=== PATIENT | female | born 1985 | race African-American/Black ===

== ENCOUNTER 2017-08-09 17:05 | Emergency (ER) | payer OTHER ==
[~2017-08-09] VITALS: Ht 170.1 cm; Wt 85.7 kg
[~2017-08-09 17:05] MED LIST: ALBUTEROL 3 ML 33 ML INH; ALBUTEROL0.09 MG/A2 INH; BACTRIM DS 8001 TA1 PO; BACTROBAN OINT22 GM PO; BIRTH CONTROL1 EAC1; CIPROFLOXACIN500 MG PO; CLARITIN10 MG PO; DUONEB 3 MG/3 ML3 M1 INH; FIORICET 325 MG1 TAB PO; FLONASE ALLERG9.9 ML NAS; HYDROCODONE BIT1 T11 PO; INDOMETHACIN50 MG PO; LEVAQUIN750 M1 PO; MEDROL DOSEPAK4 MG PO; MOTRIN400 MG PO; MOTRIN800 MG PO; PERCOCET 325 MG1 TA2 PO; PHENERGAN W/ DE30 ML PO; PREDNICOT10 MG PO; PREDNICOT20 MG PO; PREDNISONE10 MG PO; PROAIR HFA0.09 MG/AC INH; PROVENTIL0.09 MG/A1 INH; ROBITUSSIN AC 110 ML PO; SEPTRA DS 800 M1 TAB PO; TESSALON PERLE100 M1 PO; TESSALON PERLE200 MG PO; TRAMADOL HCL50 MG PO; ULTRAM50 MG PO; VENTOLIN H0.09 MG/AC INH; VIBRAMYCIN100 MG PO; VICODIN ES 7501 TAB PO; VOLTAREN50 M1 PO; XARELTO15 M1 PO; XARELTO20 M1 PO; YASMIN 3 MG-0.01 TA1 PO; ZITHROMAX TRI-500 MG PO; ZITHROMAX Z PA250 MG PO
[2017-08-09] MEDS ORDERED: PROAIR HFA8.5 GM INH (18:27)
[2017-08-09] MEDS ORDERED: LEVAQUIN750 M1 PO (18:27)
[2017-08-09] MEDS ORDERED: PREDNISONE10 MG PO (18:27)
[2017-08-09] MEDS ORDERED: HYCODAN/HYDROMET5 ML PO (18:35)
== END 2017-08-09 18:37 | disposition home or self-care (01) ==
LOC: ED 17:05
DX: J18.8 Other pneumonia, unspecified organism (principal); F10.10 Alcohol abuse, uncomplicated; J45.909 Unspecified asthma, uncomplicated; E74.39 Other disorders of intestinal carbohydrate absorption; E44.0 Moderate protein-calorie malnutrition; R73.03 Prediabetes; Z79.899 Other long term (current) drug therapy; Z87.891 Personal history of nicotine dependence; Z68.34 Body mass index [BMI] 34.0-34.9, adult

== ENCOUNTER → 2018-01-03 | Outpatient (CLI) | payer OTHER ==
[~2018-01-03] MED LIST changes: +HYCODAN/HYDROMET5 ML PO; +PROAIR HFA8.5 GM INH
== END | disposition home or self-care (01) ==
LOC: ORTHO 04:34
DX: M17.11 Unilateral primary osteoarthritis, right knee (principal); M25.461 Effusion, right knee

== ENCOUNTER 2018-08-07 18:41 | Emergency (ER) | payer OTHER ==
[~2018-08-07] VITALS: Wt 85.7 kg
== END 2018-08-07 19:43 | disposition home or self-care (01) ==
LOC: ED 18:41
DX: H11.431 Conjunctival hyperemia, right eye (principal); J45.909 Unspecified asthma, uncomplicated; E66.9 Obesity, unspecified; Z79.2 Long term (current) use of antibiotics; Z79.899 Other long term (current) drug therapy; Z87.891 Personal history of nicotine dependence; Z68.30 Body mass index [BMI] 30.0-30.9, adult; Z86.718 Personal history of other venous thrombosis and embolism

== ENCOUNTER 2018-09-23 15:29 | Emergency (ER) | payer OTHER ==
[~2018-09-23] VITALS: Ht 170.1 cm; Wt 83.9 kg
--- NOTE | ~2018-09-23 | EKG ---
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
[2018-09-23 15:56] LABS: BASO % 0.3 % (0.0-1.0); EOS # 0.1 10*3/uL (0.0-0.4); EOS % 1.1 % (1.0-4.0); HEMATOCRIT 39.5 % (37.0-47.0); HEMOGLOBIN 12.8 g/dl (12.0-16.0); LYMPH # 1.4 10*3/uL (1.3-4.4); LYMPH % 11.7 % (27.0-41.0); MEAN CELL VOLUME 92.3 fl (81.0-99.0); MEAN CORPUSCULAR HGB 29.9 pg (27.0-31.0); MEAN CORPUSCULAR HGB CONC 32.4 g/dl (33.0-37.0); MEAN PLATELET VOLUME 9.3 fl (9.6-12.3); MONO # 0.5 10*3/uL (0.1-1.0); MONO % 4.4 % (3.0-9.0); NEUT # 10.1 10*3/uL (2.3-7.9); NEUT % 82.2 % (47.0-73.0); PLATELET COUNT AUTOMATED 347 10*3/uL (130-400); RED BLOOD COUNT 4.28 10*6/uL (4.10-5.10); RED CELL DISTRI WIDTH 13.6 % (0-14.5); WHITE BLOOD COUNT 12.3 10*3/uL (4.8-10.8)
[2018-09-23 16:14] LABS: ACT PARTIAL THROMBO TIME 23.3 SECONDS (20.8-31.5)
[2018-09-23 16:18] LABS: ALBUMIN 3.8 gm/dl (3.1-4.5); ALKALINE PHOSPHATASE 76 U/L (45-117); BUN 10 mg/dl (7-24); CHLORIDE 106 mmol/L (98-107); CREATININE 0.93 mg/dL (0.55-1.02); LIPASE 65 U/L (73-393); POTASSIUM 3.4 mmol/L (3.5-5.1); SGOT/AST 13 IU/L (3-35); SGPT/ALT 18 U/L (12-78); SODIUM 139 mmol/L (136-145); TOTAL PROTEIN 8.1 gm/dL (6.4-8.2)
[2018-09-23 16:20] LABS: TROPONIN I < 0.015 ng/ml (<0.045)
[2018-09-23] MEDS ORDERED: PREDNISONE10 MG PO (18:16)
[2018-09-23] MEDS ORDERED: PROAIR HFA8.5 GM INH (18:17)
[2018-09-23] MEDS ORDERED: ZITHROMAX250 MG PO (18:17)
== END 2018-09-23 18:21 | disposition home or self-care (01) ==
LOC: ED 15:29
PROVIDERS: Nurse Practitioner Family
DX: J40 Bronchitis, not specified as acute or chronic (principal); E66.9 Obesity, unspecified; Z86.718 Personal history of other venous thrombosis and embolism; Z68.34 Body mass index [BMI] 34.0-34.9, adult; Z87.891 Personal history of nicotine dependence

== ENCOUNTER 2019-08-08 14:48 | Emergency (ER) | payer OTHER ==
[~2019-08-08] VITALS: Ht 170.1 cm; Wt 86.2 kg
[~2019-08-08 14:48] MED LIST changes: +ZITHROMAX250 MG PO
[2019-08-08 15:56] LABS: BILIRUBIN NEGATIVE (NEGATIVE); BLOOD NEGATIVE (NEGATIVE); CLARITY CLEAR (CLEAR); COLOR YELLOW (YELLOW); GLUCOSE NEGATIVE (NEGATIVE); KETONE NEGATIVE (NEGATIVE); LEUKO ESTERASE 1+ (NEGATIVE); NITRITE NEGATIVE (NEGATIVE); SPECIFIC GRAVITY 1.025 (1.005-1.030); UROBILINOGEN 0.2 E.U./dl (0.2-1.0)
[2019-08-08 16:04] LABS: EPITHELIAL CELLS 0-2; WBC 0-2 wbc/hpf (0-5)
== END 2019-08-08 16:45 | disposition home or self-care (01) ==
LOC: ED 14:48
PROVIDERS: Nurse Practitioner Family
DX: A59.01 Trichomonal vulvovaginitis (principal); J45.909 Unspecified asthma, uncomplicated; Z79.899 Other long term (current) drug therapy; Z79.2 Long term (current) use of antibiotics; Z87.891 Personal history of nicotine dependence

== ENCOUNTER 2019-12-15 10:54 | Emergency (ER) | payer OTHER ==
[~2019-12-15] VITALS: Ht 170.1 cm; Wt 85.7 kg
[2019-12-15] MEDS ORDERED: CLINDAMYCIN HC300 MG PO (12:15)
[2019-12-15] MEDS ORDERED: NAPROSYN500 MG PO (12:15)
[2019-12-15] MEDS ORDERED: TYLENOL325 M1 PO (12:15)
== END 2019-12-15 13:27 | disposition home or self-care (01) ==
LOC: ED 10:54
DX: L02.213 Cutaneous abscess of chest wall (principal); L72.3 Sebaceous cyst; M79.661 Pain in right lower leg; L03.313 Cellulitis of chest wall; J45.909 Unspecified asthma, uncomplicated; E66.9 Obesity, unspecified; Z86.718 Personal history of other venous thrombosis and embolism; Z79.899 Other long term (current) drug therapy; Z79.2 Long term (current) use of antibiotics; Z68.30 Body mass index [BMI] 30.0-30.9, adult; Z87.891 Personal history of nicotine dependence

== ENCOUNTER 2021-10-16 03:09 | Emergency (ER) | payer OTHER ==
[~2021-10-16] VITALS: Ht 167.6 cm; Wt 99.8 kg
[~2021-10-16 03:09] MED LIST changes: +CLINDAMYCIN HC300 MG PO; +NAPROSYN500 MG PO; +TYLENOL325 M1 PO
[2021-10-16] MEDS ORDERED: VOLTAREN ARTHRI20 GM T (17:03)
[2021-10-16] MEDS ORDERED: TYLENOL325 M1 PO (17:03)
[2021-10-16] MEDS ORDERED: NAPROXEN250 MG PO (17:07)
== END 2021-10-16 05:04 | disposition left against medical advice (07) ==
LOC: ED 03:09
DX: S83.104A Unspecified dislocation of right knee, initial encounter (principal); E66.9 Obesity, unspecified; J45.909 Unspecified asthma, uncomplicated; Z87.891 Personal history of nicotine dependence; W03.XXXA Other fall on same level due to collision with another person, initial encounter; Y93.89 Activity, other specified; Y92.89 Other specified places as the place of occurrence of the external cause; Y99.8 Other external cause status

== ENCOUNTER 2021-10-16 14:45 | Emergency (ER) | payer OTHER ==
[~2021-10-16] VITALS: Ht 170.1 cm; Wt 81.6 kg
[2021-10-16] MEDS ORDERED: TYLENOL325 M1 PO (17:03)
[2021-10-16] MEDS ORDERED: VOLTAREN ARTHRI20 GM T (17:03)
[2021-10-16] MEDS ORDERED: NAPROXEN250 MG PO (17:07)
== END 2021-10-16 19:18 | disposition home or self-care (01) ==
LOC: ED 14:45
DX: M25.561 Pain in right knee (principal); J45.909 Unspecified asthma, uncomplicated; E66.9 Obesity, unspecified; Z87.891 Personal history of nicotine dependence